=== PATIENT | male | born 1980 | race Caucasian/White ===

== ENCOUNTER → 2022-08-29 | Outpatient (CLI) | payer OTHER, SELFPAY ==
--- NOTE | 2022-08-29 08:00 | RAD_ITS ---
STUDY: AIR CONTRAST ESOPHAGRAM AND UPPER GI SERIES REASON FOR EXAM: Male, 41 years old. R13.10 - Dysphagia, unspecified FLUOROSCOPY TIME (if supplied): (60 seconds) minutes/seconds. 33.55 mGy TECHNIQUE: SINGLE CONTRAST AND AIR CONTRAST FLUOROSCOPIC IMAGES. COMPARISON: None. FINDINGS: The cervical esophagus demonstrates normal motility without aspiration. There is no stricture or extrinsic mass effect. No intraluminal polypoid mass is identified. The thoracic esophagus distends well without stricture or mucosal fold thickening. No mucosal ulcerations are identified. There is no extrinsic mass effect. There are no diverticula. There is evidence of a small sliding hernia with gastroesophageal reflux. The patient ingested a 12 mm tablet of barium. The tablet is trapped at the gastroesophageal junction. The stomach distends well without mucosal fold thickening or mucosal ulceration. There is no intraluminal mass. The duodenal bulb is freely distensible without deformity or ulceration. The duodenal sweep is normal in position and caliber. RAD/Upper GI w/BA Swallow IMPRESSION: Small sliding nail hernia with gastroesophageal reflux. There is trapping of the 12 mm tablet that barium at the gastroesophageal junction. Electronically Signed: Tico Arana MD at 15:20 EDT ,
== END | disposition home or self-care (01) ==
PROVIDERS: PCP Nurse Practitioner Family; Visit Provider Nurse Practitioner Family
DX: R13.10 Dysphagia, unspecified (principal)
CPT/HCPCS: 74246

== ENCOUNTER → 2022-09-17 | Outpatient (CLI) | payer OTHER, SELFPAY ==
--- NOTE | 2022-09-17 15:40 | US_ITS ---
EXAM: US SOFT TISSUES HEAD AND NECK, THYROID CLINICAL INDICATION: dysphagia TECHNIQUE: Greyscale and color doppler imaging was performed of the thyroid gland. This report was created using [employer] report [employer]mitted[employer] technology. COMPARISON: None. FINDINGS: LEFT THYROID LOBE: The left lobe of the thyroid measures 4.8 x 1.6 x 1.4 cm. Homogeneous echotexture with normal vascularity. No thyroid nodules are present. RIGHT THYROID LOBE: The right lobe of the thyroid measures 5.3 x 2 x 1.6 cm. Homogeneous echotexture with normal vascularity. No thyroid nodules are present. ISTHMUS: Thyroid isthmus measures 0.2 cm. No thyroid nodules are present. US/Thyroid IMPRESSION: Normal thyroid. Electronically Signed: Dhruv Porter MD at 7:29 EDT ,
== END | disposition home or self-care (01) ==
LOC: US 15:37
PROVIDERS: PCP Nurse Practitioner Family; Referring Provider Surgery; Visit Provider Surgery
DX: R13.10 Dysphagia, unspecified (principal)
CPT/HCPCS: 76536

== ENCOUNTER → 2022-09-27 | Outpatient (CLI) | payer OTHER, SELFPAY ==
[2022-09-27 12:04] LABS: Absolute Neutrophil Count 3.2 X10^3/uL (2.0-7.7); Basophil# 0.03 X10^3/uL; Basophil% 0.5 % (0-1); Eosinophil# 0.43 X10^3/uL; Eosinophils% 7.9 % (0-5); Hematocrit 49.7 % (40-54); Lymphocyte % 25.6 % (19-41); Mean Corp Hgb Conc 34.2 g/dL (32-36); Mean Corpuscular Hgb 30.2 pg (27.0-32.0); Mean Corpuscular Volume 88.3 fL (80-94); Mean Platelet Vol. 11.4 fl (6.2-12.0); Monocyte# 0.37 X10^3/uL; Monocyte% 6.8 % (0-10); NRBC Flagged by Analyzer 0 % (0-5); Neutrophil # 3.22 X10^3/uL (2.7-7.7); Neutrophil % 58.8 % (47-70); Platelet Count 190 K/mm3 (150-450); RBC Distribution Width CV 13.2 % (11.6-14.6); RBC Distribution Width SD 42.2 fl (35.1-43.9); Red Blood Count 5.63 M/mm3 (4.6-6.2); White Blood Count 5.5 K/mm3 (4.4-11.0)
[2022-09-27 12:30] LABS: ALB/GLOB Ratio 1.3 RATIO (0.9-2.4); AST(SGOT) 24 U/L (15-37); Alanine Aminotransfer ALT/SGPT 49 U/L (16-61); Albumin, Serum 3.9 g/dL (3.2-5.0); Alkaline Phosphatase 80 U/L (45-117); Anion Gap 2 (5-15); BUN 17 mg/dL (7-18); BUN/Creat Ratio 17.2 RATIO (10-20); Calcium,Total 8.9 mg/dL (8.5-10.1); Chloride 108 mmol/L (98-107); Cholesterol 143 mg/dL (200); Creatinine, Serum 0.99 mg/dL (0.70-1.30); EST Glomerular Filtration Rate 89 mL/min (>60); Est Glom Filt Rate - Afr Amer 108 mL/min (>60); Globulin 2.9 g/dL (2.2-4.2); Glucose 92 mg/dL (74-106); High Density Lipoprotein 55 mg/dL; Potassium 3.8 mmol/L (3.5-5.1); Protein, Total 6.8 g/dL (6.4-8.2); Sodium Level 139 mmol/L (136-145); Thyroid Stim Hormone (TSH) 2.75 uIU/mL (0.358-3.74); Triglycerides 87 mg/dL; Very Low Density Lipoprotein 17 mg/dL (5-40)
[2022-10-04 12:09] LABS: Testosterone, % Free 1.21 % (1.50-4.20); Testosterone, Total 595 ng/dL (264-916)
== END | disposition home or self-care (01) ==
LOC: BIMLAB 07:56
PROVIDERS: PCP Nurse Practitioner Family; Referring Provider Nurse Practitioner Family; Visit Provider Nurse Practitioner Family
DX: Z00.00 Encounter for general adult medical examination without abnormal findings (principal); R53.83 Other fatigue
CPT/HCPCS: 36415; 80053; 80061; 84402; 84403; 84443; 85025

== ENCOUNTER 2022-10-03 06:19 | Day surgery (SDC) | payer OTHER, SELFPAY ==
[2022-10-03] VITALS (9 sets, daily range): BP systolic 109–119; BP diastolic 79–97; PULSE 53–69; RESP 16–18; TEMP 36.2–36.3; O2SAT 98–100; BMI 26.9
[2022-10-03] MEDS: Lactated Ringers 1,000 ML 15 ML IV (07:09)
--- NOTE | 2022-10-03 07:30 | EGD_PTH ---
PATIENT: ED CLARKE LOC: EN U#:[id number] AGE/SX: 41/M ROOM: RE10/03/[address]: Dr. Dhruv Cuellar MD : 1980 BED: DIS: 10/03/2022 SPEC #: [id number] RECD: 10/03/22 14:07 STATUS: RAHEEL HUBER #: [id number] ALIX: 10/03/22 07:[address]: Dhruv Cuellar DEPT: SURGICAL PATHOLOGY RECD BY: Liza Corea ENTERED: 10/04/22 08:49 SP TYPE: EGD BIOPSY OTHR DR: MATI OrlandoC Tissues: A - Gastric mucous membrane B - Esophagus, NOS C - Esophagus, NOS Procedures: Special Stain Group II Surgery Specimen Level IV Alcian Blue/PAS (control) HEADER OPERATION: EGD ([facility] [place] biopsy PRE-OP DIAGNOSIS: Dysphagia, hiatal hernia, GERD, umbilical hernia TISSUE SUBMITTED: A ? Antrum biopsy for histo and H. pylori, B ? Z-line biopsy, C ? Distal esophagus biopsy MICROSCOPIC DIAGNOSIS A. Antrum, biopsy: Mild gastritis. See microscopic description and comment. B. Z-line biopsy: A fragment of squamous mucosa with changes consistent with eosinophilic esophagitis. See comment. C. Distal esophagus, biopsy: Fragments of gastroesophageal mucosa with mild chronic inflammation. Intestinal metaplasia (goblet cell metaplasia) not identified. SJ:germania 10/07/2022 COMMENT A. The results of immunohistochemistry for Helicobacter pylori will be reported separately ([id number]). B. Increased number of eosinophils (>20 per high power field) are noted consistent with eosinophilic esophagitis. C. Alcian blue/PAS stain with matched control is used in the evaluation of the specimen. Increased number of eosinophils (~15 per high power field) are noted. MICROSCOPIC DESCRIPTION Slides are reviewed. A. The specimen shows fragments of gastric mucosa with chronic inflammatory cell infiltrates in the lamina propria consisting of lymphocytes and plasma cells, consistent with mild chronic gastritis. GROSS DESCRIPTION A - Received in fixative is one container labeled with the patient's name and designated antrum biopsy. The specimen consists of two irregular fragments of light will soft tissue that in aggregate measure 0.6 x 0.2 x 0.1 cm. The specimen is totally submitted in one cassette. B - Received in fixative is one container labeled with the patient's name and designated Z-line biopsy. The specimen consists of one irregular fragment of light will soft tissue that measures 0.4 x 0.2 x 0.1 cm. The specimen is totally submitted in one cassette. C - Received in fixative is one container labeled with the patient's name and designated distal esophagus biopsy. The specimen consists of two irregular fragments of light will soft tissue that in aggregate measure 0.4 x 0.2 x 0.1 cm. The specimen is totally submitted in one cassette. / SJ:rg 10/04/2022 TC:3 CPT: 52996 x3, 92804
--- NOTE | 2022-10-03 07:30 | IMM_PTH ---
PATIENT: ED CLARKE LOC: EN U#:[id number] AGE/SX: 41/M ROOM: RE10/03/[address]: Dr. Dhruv Cuellar MD : 1980 BED: DIS: 10/03/2022 SPEC #: [id number] RECD: 10/04/22 09:59 STATUS: RAHEEL HUBER #: [id number] ALIX: 10/03/22 07:[address]: Dhruv Cuellar DEPT: IMMUNOHISTOCHEMISTRY RECD BY: Luz Stevenson ENTERED: 10/04/22 10:00 SP TYPE: IMMUNO OTHR DR: Cody Oshea, SIMONE-Tianna Tissues: A - Stomach, NOS Procedures: H Pylori (initial) PHYSICIAN & INSTITUTION [place] [address] SPECIMEN INFORMATION: Tissue Source: A ? Antrum biopsy Clinical Info: Dysphagia, hiatal hernia, GERD, umbilical hernia Specimen Number: [id number] CPT code: 80461 METHODOLOGY: Deparaffinized sections of prefer/formalin-fixed tissue or PAP/DQ stained slides are incubated with monoclonal/polyclonal antibodies/oligonucleotide probes. Localization is made via biotin free immunoperoxidase method. Appropriate controls are performed and reacted as expected. Results on target cell population are indicated in the following table: RESULTS: ANTIBODY / CLONE RESULT Block A H Pylori (polyclonal) negative These tests were developed and their performance characteristics determined by [facility]. They may not have been cleared or approved by the U.S. Food and Drug Administration. The FDA has determined that such clearance or approval is not necessary. The above immunohistochemical/dualISH markers are ordered and reviewed by the Pathologist. INTERPRETATION: A. Antrum, biopsy: Negative for Helicobacter pylori organisms. SJ:germania 10/07/2022
--- NOTE | 2022-10-03 07:32 | PCM.HP.BLA ---
History and Physical Date of Admission: 10/03/22 Date of Service:? 09/12/22 MR#: [id number] Acct: [id number] Name:ED VO Rep #: [id number] : 1980 ? ? Provider: Dr. Dhruv Cuellar MD Age/Sex:? 41/M ? ? Location: [facility] Status: Signed Intake Vital Signs ? 09/12/2308:52 Height 6 ft 1 in Weight: 207 lb BMI 27.3 Intake Visit Reasons:?Dysphagia Chief Complaint: dysphagia Allergies No Known Allergies Allergy (Unverified 08/22/22 14:03) PFSH Medical History? Dysphagia Surgical History? H/O: vasectomy S/P placement of implantable collamer lens (ICL) Family History? Mother Arthritis Social History? Smoking Status:? Never smoker alcohol intake:? current details:? 2-4 drinks per day substance use type:? does not use what type of physical activity do you participate in:? walking and weight training HPI HPI HPI: Patient is a 41-year-old male who presents for dysphagia.? They are referred for surgical consultation from Cody Oshea NP.? Patient states that he has had the symptoms for years (a ballpark's this duration at approximately 5 years.? He notes that there has been no recent symptomatology and that this is true of his experience of this issue, generally.? He reports that the difficulty swallowing comes and goes.? He notes that during a recent vacation to [facility] in July he had issues almost every day, but then can go 3 to 4 weeks without issue.? He does report identifying some trigger foods?being steak (even despite being coverage small), sandwiches/breads, and lips he insist that his problems are not choking but that it just get stuck.? He reports that generally standing and moving around leads to food becoming dislodged.? He reports feeling this lodging high up in his neck.? Mr. Flynn denies any reproduction of his symptoms during his recent upper GI study.? He states he has no history of reflux symptoms and always joked that he had a still stomach.? We are also reports minimal experience of heartburn and reports that he only took a Tums tablet once in his life. ? Regarding other causes of potential swallowing difficulty, patient was asked about any history of endocrine disorders from [employer] speaking.? He notes that his aunt was diagnosed with thyroid disorder and required thyroidectomy.? He also believes his mother may have had some thyroid issues, but is not able to specify further. Previous work-up has included: As above patient completed a air-contrast esophagram and upper GI series on 08/29/2022.? This demonstrated evidence of a small sliding hiatal hernia with gastroesophageal reflux and trapping of the 12 mm barium tablet. ROS General General: No weight change, appetite, fatigue, colon cancer, breast cancer or weakness HEENT HEENT: No difficulty swallowing, eye injury, eye surgery, swollen glands or hoarseness Endo Endocrine: No thyroid disease, diabetes mellitus, thyroid cancer, Hair loss, heat intolerance or cold intolerance Skin Skin: No rash or changing moles Breast Breast: No left breast lump, right breast lump, nipple discharge, breast pain, abnormal mammogram, abnormal US or breast enlargement Musc Musculoskeletal: No back problems, arthritis, rheumatoid arthritis, gout or joint pain Cardio Cardiovascular: No murmur, pacemaker, heart disease, atrial fibrillation, high blood pressure, heart attack, heart stent, palpitations, shortness of breat with exertion or chest pain Psych Psychiatric: No depression, anxiety or hearing voices Resp Respiratory: No shortness of breath, No sleep apnea, No cough, No COPD, No asthma, No emphysema and No wheezing Gastro Gastrointestinal: No abdominal pain, No nausea or vomiting, No diarrhea, No constipation, No blood in stool, No acid reflux, No hemorrhoids, No ulcers, No gallbladder problem and No black,tarry stools Diogo Hematologic: No blood thinners, No blood disorders, No bleeding, No anemia and No blood clots Neuro Neurologic: No system reviewed and no additional complaints, except as documented, No as per HPI, No abnormal gait, No abnormal hearing, No abnormal movements, No abnormal speech, No behavioral changes, No burning sensations, No confusion, No convulsions, No disequilibrium, No dizziness, No localized weakness, No frequent falls, No headache(s), No lack of coordination, No loss of vision, No memory loss, No numbness, No other visual disturbances, No radicular pain, No restless legs, No sensory deficit, No syncope, No tingling, No tremor(s), No weakness and No other Exam Const General: cooperative, comfortable and no acute distress Neck Other: Has some laryngeal asymmetry when asked to swallow, however, I perceive this to be primarily at the level of his thyroid cartilage.? I do not palpate any clear evidence of thyroid nodularity.? Patient has no tenderness with neck exam. GI Other: No scars, nondistended.? Patient has no tenderness with palpation of 4 abdominal quadrants for the epigastrium.? However, at the umbilicus I palpated a chronically fat incarcerated umbilical hernia.? There is some tenderness with palpation of these incarcerated contents. Assessment and Plan Assessment and Plan (1) Dysphagia: ?Status:?Chronic ?Comment: This is a 41-year-old male who presents with a chronic history of episodic dysphagia.? Patient clearly articulates that his difficulty swallowing seems to be a very early problem in the swallowing reflex and repeatedly points to his cervical area as the point of problem.? However, work-up was started for this issue with a upper GI series that showed evidence of a small hiatal hernia and associated esophageal reflux.? Patient actually had trapping of the barium tablet within this hiatal hernia during the procedure.? When asked to recall if this procedure reproduced any of his symptoms, he denied any such reproduction.? With his based on this denial, that I question whether this hiatal hernia and reflux may actually be symptomatic and there may be a true primary cause yet unidentified.? Patient has a slightly abnormal laryngeal appearance and therefore I would like to get a formal thyroid ultrasound to assess for any thyroid nodularity that may be an alternative explanation for this dysphagia. ?Plan: Thyroid ultrasound (2) Hiatal hernia with gastroesophageal reflux: ?Status:?Chronic ?Comment: Patient with recent upper GI series for complaints of dysphagia showing small hiatal hernia and gastroesophageal reflux.? Patient insists that he has no history of reflux symptoms?nor heartburn symptoms.? Still given his complaints of dysphagia, the fact that his barium tablet became trapped within his hiatal hernia, and the possibility of silent reflux, I have recommended that we consider diagnostic EGD to better evaluate patient's anatomy.? Patient is receptive of this recommendation and wishes to proceed as described. ?Plan: EGD under local MAC to assess for size of hiatal hernia and any associated mucosal change (3) Umbilical hernia: ?Status:?Chronic ?Comment: Patient with incidentally discovered umbilical hernia during today's exam.? Appears to be chronically fat?incarcerated.? Patient denies any significant symptoms, but does remark of occasional pains in this area.? Given that there is fat within the defect that does not reduce easily, I believe patient is at minimal risk for bowel involvement, but have cautioned him that these hernias are likely to grow in size and symptom and that ultimately I would recommend he consider a repair.? Patient states he will take this into consideration. Interval: Pt seen and examined. He denies any health changes and reports that he is great. He was updated on the results of his recent thyroid US. All questions were taken from pt and his mother re today's procedure. Plan to proceed to endoscopy suite for procedure as disccussed above.
--- NOTE | 2022-10-03 08:31 | OP.EGD_ITS ---
Patient Name: Bryan Flynn Procedure Date: 10/03/2022 7:58 AM Date of : 1980 Age: 41 Procedure: Upper GI endoscopy Indications: Dysphagia, Gastro-esophageal reflux disease Providers: Dhruv Cuellar MD Referring MD: Cody Oshea NP Medicines: Monitored Anesthesia Care Patient Profile: Refer to note in patient chart for documentation of history and physical. Complications: No immediate complications. Estimated blood loss: Minimal. Procedure: Pre-Anesthesia Assessment: - The heart rate, respiratory rate, oxygen saturations, blood pressure, adequacy of pulmonary ventilation, and response to care were monitored throughout the procedure. After obtaining informed consent, the endoscope was passed under direct vision. Throughout the procedure, the patient's blood pressure, pulse, and oxygen saturations were monitored continuously. The gastroscope was introduced through the mouth, and advanced to the second part of duodenum. The upper GI endoscopy was accomplished without difficulty. The patient tolerated the procedure well. Scope In: 8:05:28 AM Scope Out: 8:22:06 AM Total Procedure Duration Time 0 hours 16 minutes 38 seconds Findings: The duodenal bulb, first portion of the duodenum and second portion of the duodenum were normal. No biopsies or other specimens were collected for this exam. Localized mildly erythematous mucosa without bleeding was found in the gastric antrum. Biopsies were taken with a cold forceps for histology. Estimated blood loss was minimal. A medium-sized hiatal hernia was present. No biopsies or other specimens were collected for this exam. The gastroesophageal flap valve was visualized endoscopically and classified as Hill Grade IV (no fold, wide open lumen, hiatal hernia present). No biopsies or other specimens were collected for this exam. The Z-line was regular and was found 40 cm from the incisors. Biopsies were taken with a cold forceps for histology. The proximal esophagus and mid esophagus were normal. No biopsies or other specimens were collected for this exam. Impression: - Normal duodenal bulb, first portion of the duodenum and second portion of the duodenum. No specimens collected. - Erythematous mucosa in the antrum. Biopsied. - Medium-sized hiatal hernia. No specimens collected. - Gastroesophageal flap valve classified as Hill Grade IV (no fold, wide open lumen, hiatal hernia present). No specimens collected. - Z-line regular, 40 cm from the incisors. Biopsied. - Normal proximal esophagus and mid esophagus. No specimens collected. Recommendation: - Discharge patient to home (via wheelchair). - Resume previous diet today. - Continue present medications. - Await pathology results. - Telephone my office for pathology results in 1 week. Procedure Code(s): --- Professional --- 36714, Esophagogastroduodenoscopy, flexible, transoral; with biopsy, single or multiple Diagnosis Code(s): --- Professional --- K31.89, Other diseases of stomach and duodenum K44.9, Diaphragmatic hernia without obstruction or gangrene R13.10, Dysphagia, unspecified K21.9, Gastro-esophageal reflux disease without esophagitis CPT copyright 2017 [employer]. All rights reserved. The codes documented in this report are preliminary and upon e business manager review may be revised to meet current compliance requirements. Dhruv Cuellar MD 10/03/2022 8:30:45 AM This report has been signed electronically. Number of Addenda: 0 Note Initiated On: 10/03/2022 7:58 AM
--- NOTE | 2022-10-03 08:32 | OP.CCLET_ITS ---
10/03/2022 Cody Oshea NP [address] [place] [address] [place] [address] Re : Upper GI endoscopy procedure for Bryan Flynn Dear Mr. Oshea This procedure was performed on September. My impressions and recommendations are as follows: Impressions : - Normal duodenal bulb, first portion of the duodenum and second portion of the duodenum. No specimens collected. - Erythematous mucosa in the antrum. Biopsied. - Medium-sized hiatal hernia. No specimens collected. - Gastroesophageal flap valve classified as Hill Grade IV (no fold, wide open lumen, hiatal hernia present). No specimens collected. - Z-line regular, 40 cm from the incisors. Biopsied. - Normal proximal esophagus and mid esophagus. No specimens collected. Recommendations : - Discharge patient to home (via wheelchair). - Resume previous diet today. - Continue present medications. - Await pathology results. - Telephone my office for pathology results in 1 week. My findings are described in the full procedure note, which is enclosed. If I can be of further assistance, please feel free to contact me at Doctor phone number(s): , Work: . Sincerely, Dhruv Cuellar MD 10/03/2022 8:30:45 AM This report has been signed electronically.
== END 2022-10-03 09:25 | disposition home or self-care (01) ==
LOC: EN 06:20 → AC 06:20
PROVIDERS: PCP Nurse Practitioner Family; Referring Provider Nurse Practitioner Family; Visit Provider Surgery
PROC: 0DJ08ZZ Inspection of Upper Intestinal Tract, Via Natural or Artificial Opening Endoscopic (ICD-10-PCS; CPT 43235; principal; 2022-10-03 07:25)
DX: K29.70 Gastritis, unspecified, without bleeding (principal); K44.9 Diaphragmatic hernia without obstruction or gangrene; K21.00 Gastro-esophageal reflux disease with esophagitis, without bleeding; K42.9 Umbilical hernia without obstruction or gangrene
CPT/HCPCS: 43239; 88305; 88313; 88342; J2405

== ENCOUNTER 2022-12-19 06:21 | Day surgery (SDC) | payer OTHER, SELFPAY ==
--- NOTE | 2022-12-19 | IMM_PTH ---
PATIENT: ED CLARKE LOC: EN U#:[id number] AGE/SX: 42/M ROOM: RE12/19/[address]: Dr. Dhruv Cuellar MD : 1980 BED: DIS: 12/19/2022 SPEC #: [id number] RECD: 12/20/22 08:07 STATUS: RAHEEL HUBER #: [id number] ALIX: 12/19/22 00:[address]: Dhruv Cuellar DEPT: IMMUNOHISTOCHEMISTRY RECD BY: Sylvia Cano ENTERED: 12/20/22 08:08 SP TYPE: IMMUNO OT DR: Thelma Primary Care Phys Tissues: A - Gastric mucous membrane Procedures: H Pylori (initial) PHYSICIAN & INSTITUTION [place] [address] SPECIMEN INFORMATION: Tissue Source: Antrum Clinical Info: Dysphagia, hiatal hernia, umbilical hernia Specimen Number: [id number] CPT code: 69927 METHODOLOGY: Deparaffinized sections of prefer/formalin-fixed tissue or PAP/DQ stained slides are incubated with monoclonal/polyclonal antibodies/oligonucleotide probes. Localization is made via biotin free immunoperoxidase method. Appropriate controls are performed and reacted as expected. Results on target cell population are indicated in the following table: RESULTS: ANTIBODY / CLONE RESULT H Pylori (polyclonal) negative These tests were developed and their performance characteristics determined by [facility]. They may not have been cleared or approved by the U.S. Food and Drug Administration. The FDA has determined that such clearance or approval is not necessary. The above immunohistochemical/dualISH markers are ordered and reviewed by the Pathologist. INTERPRETATION: A. Antrum, biopsy: Negative for Helicobacter pylori organisms. SJ:reji 12/20/22
--- NOTE | 2022-12-19 | GASB_PTH ---
PATIENT: ED CLARKE LOC: EN U#:[id number] AGE/SX: 42/M ROOM: RE12/19/[address]: Dr. Dhruv Cuellar MD : 1980 BED: DIS: 12/19/2022 SPEC #: [id number] RECD: 12/19/22 13:13 STATUS: RAHEEL HUBER #: [id number] ALIX: 12/19/22 00:[address]: Dhruv Cuellar DEPT: SURGICAL PATHOLOGY RECD BY: Tod Hu ENTERED: 12/19/22 13:13 SP TYPE: Gastric Bx OTHR DR: No Primary Care Phys Tissues: A - Gastric mucous membrane B - Gastric mucous membrane C - Esophageal mucous membrane Procedures: Special Stain Group II Surgery Specimen Level IV Alcian Blue/PAS (control) HEADER OPERATION: EGD PRE-OP DIAGNOSIS: Dysphagia, hiatal hernia with gastroesophageal reflux, umbilical hernia TISSUE SUBMITTED: A. Antrum, B. Hiatal hernia, C. Distal esophagus MICROSCOPIC DIAGNOSIS A. Antrum, biopsy: Mild gastritis. See microscopic description and comment. B. Hiatal hernia, biopsy: Mild gastritis. See microscopic description. C. Distal esophagus, biopsy: Fragments of gastroesophageal mucosa with chronic inflammation. Intestinal metaplasia (goblet cell metaplasia) not identified. SJ: 12/20/2022 COMMENT A. The results of immunohistochemistry for Helicobacter pylori will be reported separately ([id number]). C. Alcian blue/PAS stain with matched control supports the above diagnosis. MICROSCOPIC DESCRIPTION Slides are reviewed. A & B. The specimen shows fragments of gastric mucosa with chronic inflammatory cell infiltrates in the lamina propria consisting of lymphocytes and plasma cells, consistent with mild chronic gastritis. GROSS DESCRIPTION A. Received is one container labeled with the patient name and designated antrum. The specimen consists of multiple irregular fragments of light will soft tissue that in aggregate measure 1.5 x .3 x .1 cm. The specimen is totally submitted in one cassette. B. Received is one container labeled with the patient name and designated hiatal hernia. The specimen consists of two irregular fragments of light will soft tissue that in aggregate measure .6 x .2 x .1 cm. The specimen is totally submitted in one cassette. C. Received is one container labeled with the patient name and designated distal esohagus. The specimen consists of multiple irregular fragments of light will soft tissue that in aggregate measure 1 x .3 x .1 cm. The specimen is totally submitted in one cassette. / SJ:cc 12/20/22 TC:3 CPT:57693 x3, 49814
[2022-12-19 07:01] VITALS: BP 120/79; PULSE 67; RESP 16; TEMP 36.6; O2SAT 98; BMI 27.0
[2022-12-19] MEDS: Lactated Ringers 1,000 ML 15 ML IV (07:04)
--- NOTE | 2022-12-19 07:39 | HP.PCM_ITS ---
History and Physical Date of Admission: 12/19/22 Date of Service: 09/12/22 MR#: [id number] Acct: [id number] Name: ED CLARKE Rep #: [id number] : 1980 Provider: Dr. Dhruv Cuellar MD Age/Sex: 41/M Location: [facility] [address] Status: Signed Intake Vital Signs 09/12/2308:52 Height 6 ft 1 in Weight: 207 lb BMI 27.3 Intake Visit Reasons: Dysphagia Chief Complaint: dysphagia Allergies No Known Allergies Allergy (Unverified 08/22/22 14:03) PFSH Medical History Dysphagia Surgical History H/O: vasectomy S/P placement of implantable collamer lens (ICL) Family History Mother Arthritis Social History Smoking Status: Never smoker alcohol intake: current details: 2-4 drinks per day substance use type: does not use what type of physical activity do you participate in: walking and weight training HPI HPI HPI: Patient is a 41-year-old male who presents for dysphagia. They are referred for surgical consultation from Cody Oshea NP. Patient states that he has had the symptoms for years (a ballpark's this duration at approximately 5 years. He not es that there has been no recent symptomatology and that this is true of his experience of this issue, generally. He reports that the difficulty swallowing comes and goes. He notes that during a recent vacation to [place] in July he had issues almost every day, but then can go 3 to 4 weeks without issue. He does report identifying some trigger foods?being steak (even despite being coverage small), sandwiches/breads, and lips he insist that his problems are not choking but that it just get stuck. He reports that generally standing and moving around leads to food becoming dislodged. He reports feeling this lodging high up in his neck. Mr. Clarke denies any reproduction of his symptoms during his recent upper GI study. He states he has no history of reflux symptoms and always joked that he had a still stomach. We are also reports minimal experience of heartburn and reports that he only took a Tums tablet once in his life. Regarding other causes of potential swallowing difficulty, patient was asked about any history of endocrine disorders from [place] speaking. He notes that his aunt was diagnosed with thyroid disorder and required thyroidectomy. He also believes his mother may have had some thyroid issues, but is not able to specify further. Previous work-up has included: As above patient completed a air-contrast esophagram and upper GI series on 08/29/2022. This demonstrated evidence of a small sliding hiatal hernia with gastroesophageal reflux and trapping of the 12 mm barium tablet. ROS General General: No weight change, appetite, fatigue, colon cancer, breast cancer or weakness HEENT HEENT: No difficulty swallowing, eye injury, eye surgery, swollen glands or hoarseness Endo Endocrine: No thyroid disease, diabetes mellitus, thyroid cancer, Hair loss, heat intolerance or cold intolerance Skin Skin: No rash or changing moles Breast Breast: No left breast lump, right breast lump, nipple discharge, breast pain, abnormal mammogram, abnormal US or breast enlargement Musc Musculoskeletal: No back problems, arthritis, rheumatoid arthritis, gout or joint pain Cardio Cardiovascular: No murmur, pacemaker, heart disease, atrial fibrillation, high blood pressure, heart attack, heart stent, palpitations, shortness of breat with exertion or chest pain Psych Psychiatric: No depression, anxiety or hearing voices Resp Respiratory: No shortness of breath, No sleep apnea, No cough, No COPD, No asthma, No emphysema and No wheezing Gastro Gastrointestinal: No abdominal pain, No nausea or vomiting, No diarrhea, No constipation, No blood in stool, No acid reflux, No hemorrhoids, No ulcers, No gallbladder problem and No black,tarry stools Diogo Hematologic: No blood thinners, No blood disorders, No bleeding, No anemia and No blood clots Neuro Neurologic: No system reviewed and no additional complaints, except as documented, No as per HPI, No abnormal gait, No abnormal hearing, No abnormal movements, No abnormal speech, No behavioral changes, No burning sensations, No confusion, No convulsions, No disequilibrium, No dizziness, No localized weakness, No frequent falls, No headache(s), No lack of coordination, No loss of vision, No memory loss, No numbness, No other visual disturbances, No radicular pain, No restless legs, No sensory deficit, No syncope, No tingling, No tremor(s), No weakness and No other Exam Const General: cooperative, comfortable and no acute distress Neck Other: Has some laryngeal asymmetry when asked to swallow, however, I perceive this to be primarily at the level of his thyroid cartilage. I do not palpate any clear evidence of thyroid nodularity. Patient has no tenderness with neck exam. GI Other: No scars, nondistended. Patient has no tenderness with palpation of 4 abdominal quadrants for the epigastrium. However, at the umbilicus I palpated a chronically fat incarcerated umbilical hernia. There is some tenderness with palpation of these incarcerated contents. Assessment and Plan Assessment and Plan (1) Dysphagia: Status: Chronic Comment: This is a 41-year-old male who presents with a chronic history of episodic dysphagia. Patient clearly articulates that his difficulty swallowing seems to be a very early problem in the swallowing reflex and repeatedly points to his cervical area as the point of problem. However, work-up was started for this issue with a upper GI series that showed evidence of a small hiatal hernia and associated esophageal reflux. Patient actually had trapping of the barium tablet within this hiatal hernia during the procedure. When asked to recall if this procedure reproduced any of his symptoms, he denied any such reproduction. With his based on this denial, that I question whether this hiatal hernia and reflux may actually be symptomatic and there may be a true primary cause yet unidentified. Patient has a slightly abnormal laryngeal appearance and ther efore I would like to get a formal thyroid ultrasound to assess for any thyroid nodularity that may be an alternative explanation for this dysphagia. Plan: Thyroid ultrasound (2) Hiatal hernia with gastroesophageal reflux: Status: Chronic Comment: Patient with recent upper GI series for complaints of dysphagia showing small hiatal hernia and gastroesophageal reflux. Patient insists that he has no history of reflux symptoms?nor heartburn symptoms. Still given his complaints of dysphagia, the fact that his barium tablet became trapped within his hiatal hernia, and the possibility of silent reflux, I have recommended that we consider diagnostic EGD to better evaluate patient's anatomy. Patient is re ceptive of this recommendation and wishes to proceed as described. Plan: EGD under local MAC to assess for size of hiatal hernia and any associated mucosal change (3) Umbilical hernia: Status: Chronic Comment: Patient with incidentally discovered umbilical hernia during today's exam. Appears to be chronically fat?incarcerated. Patient denies any significant symptoms, but does remark of occasional pains in this area. Given that there is fat within the defect that does not reduce easily, I believe patient is at minimal risk for bowel involvement, but have cautioned him that these hernias are likely to grow in size and symptom and that ultimately I would recommend he consider a repair. Patient states he will take this into consideration. Orders: Update: Pt reports improvement of symptoms since his last EGD September. He actually denies any choking episodes. However, he also adds that he has been using a different sleeping position and questions whether or not this may be helping as well. We will plan to proceed with EGD and biopsy to hopefully objectively evaluate his response to treatment for eosinophilic esophagitis.
[2022-12-19 08:10] VITALS: BP 120/79; BP 96/52; PULSE 64; RESP 14; TEMP 36.4; O2SAT 96
--- NOTE | 2022-12-19 08:10 | OP.EGD_ITS ---
Patient Name: Bryan Flynn Procedure Date: 12/19/2022 7:20 AM Date of : 1980 Age: 42 Procedure: Upper GI endoscopy Indications: Eosinophilic esophagitis, Follow-up of eosinophilic esophagitis Providers: Dhruv Cuellar MD Medicines: See the Anesthesia note for documentation of the administered medications Patient Profile: Refer to note in patient chart for documentation of history and physical. Complications: No immediate complications. Estimated blood loss: Minimal. Procedure: Pre-Anesthesia Assessment: - The heart rate, respiratory rate, oxygen saturations, blood pressure, adequacy of pulmonary ventilation, and response to care were monitored throughout the procedure. After obtaining informed consent, the endoscope was passed under direct vision. Throughout the procedure, the patient's blood pressure, pulse, and oxygen saturations were monitored continuously. The gastroscope was introduced through the mouth, and advanced to the second part of duodenum. The upper GI endoscopy was accomplished without difficulty. The patient tolerated the procedure well. Scope In: 7:46:12 AM Scope Out: 8:00:38 AM Total Procedure Duration Time 0 hours 14 minutes 26 seconds Findings: No gross lesions were noted in the duodenal bulb, in the first portion of the duodenum and in the second portion of the duodenum. No biopsies or other specimens were collected for this exam. Localized mild inflammation characterized by erythema was found in the gastric antrum. Biopsies were taken with a cold forceps for histology. Estimated blood loss was minimal. A medium-sized hiatal hernia was present. Biopsies were taken with a cold forceps for histology. Estimated blood loss was minimal. The Z-line was regular and was found 39 cm from the incisors. Biopsies were taken with a cold forceps for histology. The exam was otherwise without abnormality. Impression: - No gross lesions in the duodenal bulb, in the first portion of the duodenum and in the second portion of the duodenum. No specimens collected. - Gastritis. Biopsied. - Medium-sized hiatal hernia. Biopsied. - Z-line regular, 39 cm from the incisors. Biopsied. - The examination was otherwise normal. Recommendation: - Discharge patient to home (via wheelchair). - Resume previous diet today. - Continue present medications. - Await pathology results. - Telephone my office for pathology results in 1 week. Procedure Code(s): --- Professional --- 28644, Esophagogastroduodenoscopy, flexible, transoral; with biopsy, single or multiple Diagnosis Code(s): --- Professional --- K29.70, Gastritis, unspecified, without bleeding K44.9, Diaphragmatic hernia without obstruction or gangrene K20.0, Eosinophilic esophagitis CPT copyright 2017 [employer]. All rights reserved. The codes documented in this report are preliminary and upon clean rice grader and reel tender review may be revised to meet current compliance requirements. Dhruv Cuellar MD 12/19/2022 8:10:00 AM This report has been signed electronically. Number of Addenda: 0 Note Initiated On: 12/19/2022 7:20 AM
--- NOTE | 2022-12-19 08:11 | OP.CCLET_ITS ---
12/19/2022 Cody Oshea, SIMONE [address] [place] [place] [address] [place] [address] Re : Upper GI endoscopy procedure for Bryan Flynn Dear Mr. Oshea This procedure was performed on December. My impressions and recommendations are as follows: Impressions : - No gross lesions in the duodenal bulb, in the first portion of the duodenum and in the second portion of the duodenum. No specimens collected. - Gastritis. Biopsied. - Medium-sized hiatal hernia. Biopsied. - Z-line regular, 39 cm from the incisors. Biopsied. - The examination was otherwise normal. Recommendations : - Discharge patient to home (via wheelchair). - Resume previous diet today. - Continue present medications. - Await pathology results. - Telephone my office for pathology results in 1 week. My findings are described in the full procedure note, which is enclosed. If I can be of further assistance, please feel free to contact me at Doctor phone number(s): , Work: . Sincerely, Dhruv Cuellar MD 12/19/2022 8:10:00 AM This report has been signed electronically.
[2022-12-19 08:15] VITALS: BP 120/79; BP 95/52; PULSE 61; RESP 14; O2SAT 95
[2022-12-19 08:20] VITALS: BP 100/75; BP 120/79; PULSE 57; RESP 14; O2SAT 96
[2022-12-19 08:25] VITALS: BP 100/76; BP 120/79; PULSE 59; RESP 16; TEMP 36.3; O2SAT 95
[2022-12-19 08:36] VITALS: BP 120/79
== END 2022-12-19 08:47 | disposition home or self-care (01) ==
LOC: EN 06:23 → AC 06:23
PROVIDERS: Referring Provider Surgery; Visit Provider Surgery
PROC: 0DJ08ZZ Inspection of Upper Intestinal Tract, Via Natural or Artificial Opening Endoscopic (ICD-10-PCS; CPT 43235; principal; 2022-12-19 07:25)
DX: K21.00 Gastro-esophageal reflux disease with esophagitis, without bleeding (principal); K44.9 Diaphragmatic hernia without obstruction or gangrene; K29.70 Gastritis, unspecified, without bleeding; K42.9 Umbilical hernia without obstruction or gangrene; Z79.899 Other long term (current) drug therapy
CPT/HCPCS: 43239; 88305; 88313; 88342; J7120; J2405

== ENCOUNTER → 2023-10-03 | Outpatient (CLI) | payer OTHER, SELFPAY ==
[2023-10-03 12:35] LABS: Absolute Neutrophil Count 3.2 X10^3/uL (2.0-7.7); Basophil# 0.02 X10^3/uL; Basophil% 0.4 % (0-1); Eosinophil# 0.32 X10^3/uL; Eosinophils% 5.8 % (0-5); Hematocrit 49.3 % (40-54); Hemoglobin 16.7 g/dL (13.0-16.5); Lymphocyte % 27.1 % (19-41); Mean Corp Hgb Conc 33.9 g/dL (32-36); Mean Corpuscular Hgb 29.8 pg (27.0-32.0); Mean Platelet Vol. 11.4 fl (6.2-12.0); Monocyte# 0.51 X10^3/uL; Monocyte% 9.2 % (0-10); NRBC Flagged by Analyzer 0 % (0-5); Neutrophil # 3.17 X10^3/uL (2.7-7.7); Neutrophil % 57.1 % (47-70); Platelet Count 202 K/mm3 (150-450); RBC Distribution Width CV 13.2 % (11.6-14.6); RBC Distribution Width SD 42.5 fl (35.1-43.9); White Blood Count 5.5 K/mm3 (4.4-11.0)
[2023-10-03 13:46] LABS: ALB/GLOB Ratio 1.5 RATIO (0.9-2.4); AST(SGOT) 48 U/L (15-37); Alanine Aminotransfer ALT/SGPT 63 U/L (16-61); Albumin, Serum 3.9 g/dL (3.2-5.0); Alkaline Phosphatase 94 U/L (45-117); Anion Gap 2 (5-15); BUN 21 mg/dL (7-18); BUN/Creat Ratio 23.5 RATIO (10-20); Chloride 109 mmol/L (98-107); Cholesterol 126 mg/dL (200); Creatinine, Serum 0.89 mg/dL (0.70-1.30); EST Glomerular Filtration Rate 100 mL/min (>60); Est Glom Filt Rate - Afr Amer 121 mL/min (>60); Globulin 2.6 g/dL (2.2-4.2); Glucose 60 mg/dL (74-106); High Density Lipoprotein 50 mg/dL; Potassium 4.6 mmol/L (3.5-5.1); Protein, Total 6.5 g/dL (6.4-8.2); Sodium Level 140 mmol/L (136-145); Triglycerides 81 mg/dL; Very Low Density Lipoprotein 16 mg/dL (5-40)
== END | disposition home or self-care (01) ==
LOC: BIMLAB 08:24
PROVIDERS: PCP Internal Medicine; Visit Provider Internal Medicine
DX: Z00.00 Encounter for general adult medical examination without abnormal findings (principal)
CPT/HCPCS: 36415; 80053; 80061; 85025

== ENCOUNTER → 2023-12-17 | Outpatient (CLI) | payer OTHER, SELFPAY ==
[2023-12-17 12:28] LABS: Bacteria 0 SEEN /hpf (None Seen); Mucous, Urine 0 SEEN /hpf (<or=2+); Red Blood Cells-Urine 0 SEEN /hpf (0-5); Squamous Epithelial Cells - UA 0 SEEN /hpf (0-5); White Blood Cells 0 SEEN /hpf (0-5)
[2023-12-17 15:28] LABS: Color, Urine Yellow (Yellow); Glucose, Dipstick Normal (Normal); Ketone-Dipstick Negative (Negative); Leukocyte Esterase-Dipstick Negative /ul (Negative); Nitrite-Dipstick Negative (Negative); Occult Blood-Urine Negative /ul (Negative); Protein-Dipstick Negative (Negative); Urine Bilirubin Dipstick Negative (Negative); Urine Clarity Clear (Clear); Urine Urobilinogen Normal (Normal)
[2023-12-17 15:42] LABS: ALB/GLOB Ratio 1.2 RATIO (0.9-2.4); AST(SGOT) 20 U/L (15-37); Alanine Aminotransfer ALT/SGPT 39 U/L (16-61); Albumin, Serum 3.8 g/dL (3.2-5.0); Alkaline Phosphatase 91 U/L (45-117); Anion Gap 5 (5-15); BUN 15 mg/dL (7-18); BUN/Creat Ratio 15.1 RATIO (10-20); CRP 5.36 mg/L (0.0-3.0); Chloride 105 mmol/L (98-107); EST Glomerular Filtration Rate 88 mL/min (>60); Est Glom Filt Rate - Afr Amer 107 mL/min (>60); Globulin 3.3 g/dL (2.2-4.2); Glucose 95 mg/dL (74-106); Potassium 4.1 mmol/L (3.5-5.1); Protein, Total 7.1 g/dL (6.4-8.2); Sodium Level 139 mmol/L (136-145); Thyroid Stim Hormone (TSH) 2.24 uIU/mL (0.358-3.74)
[2023-12-17 15:58] LABS: Absolute Lymphocyte Count 1.98 X10^3/uL (0.83-4.51); Absolute Neutrophil Count 5.5 X10^3/uL (2.0-7.7); Basophil# 0.04 X10^3/uL; Basophil% 0.5 % (0-1); Eosinophils% 1.2 % (0-5); Erythrocyte Sedimentation Rate < 1 mm/hr (0-20); Hematocrit 44.1 % (40-54); Hemoglobin 15.4 g/dL (13.0-16.5); Lymphocyte # 1.98 X10^3/ul (0.83-4.51); Lymphocyte % 24.1 % (19-41); Mean Corp Hgb Conc 34.9 g/dL (32-36); Mean Corpuscular Hgb 29.3 pg (27.0-32.0); Mean Corpuscular Volume 83.8 fL (80-94); Mean Platelet Vol. 10.2 fl (6.2-12.0); Monocyte# 0.59 X10^3/uL; Monocyte% 7.2 % (0-10); NRBC Flagged by Analyzer 0 % (0-5); Neutrophil # 5.46 X10^3/uL (2.7-7.7); Neutrophil % 66.4 % (47-70); Platelet Count 307 K/mm3 (150-450); RBC Distribution Width CV 13.3 % (11.6-14.6); RBC Distribution Width SD 39.8 fl (35.1-43.9); Red Blood Count 5.26 M/mm3 (4.6-6.2); White Blood Count 8.2 K/mm3 (4.4-11.0)
--- NOTE | 2023-12-17 16:19 | RAD_ITS ---
INDICATION: fever EXAMINATION/TECHNIQUE: X-RAY - XR Chest 2 Views COMPARISON: No previous relevant examinations available for comparison.. FINDINGS: LIFE-SUPPORT AND LINES: 1. None HEART AND VESSELS: The cardiac silhouette, pulmonary vasculature have normal appearance. No evidence of congestive failure. LUNGS AND PLEURAL SPACES: Lungs are clear. No focal infiltrate, consolidation or effusions. No evidence of pneumothorax. No pulmonary mass is noted. MEDIASTINUM AND HILAR REGIONS: No masses adenopathy noted. No areas of calcification. Visualized upper airway is normal in position. BONY ELEMENTS: No acute bony changes noted. RAD/Chest PA and Lateral IMPRESSION: 1. No evidence of acute cardiopulmonary process Electronically Signed: Jb Balbuena MD at 17:08 EDT ,
[2023-12-19 14:10] LABS: ANTINUCLEAR ANTIBODIES DIRECT Negative (Negative)
== END | disposition home or self-care (01) ==
PROVIDERS: PCP Internal Medicine; Referring Provider Physician Assistant; Visit Provider Physician Assistant
DX: R50.9 Fever, unspecified (principal)
CPT/HCPCS: 36415; 71046; 80053; 81001; 84443; 85025; 85652; 86038; 86140; 86225; 86235

== ENCOUNTER → 2024-10-04 | Outpatient (CLI) | payer OTHER, SELFPAY ==
[2024-10-04 13:34] LABS: Absolute Lymphocyte Count 1.67 X10^3/uL (0.83-4.51); Absolute Neutrophil Count 2.5 X10^3/uL (2.0-7.7); Basophil# 0.02 X10^3/uL; Basophil% 0.4 % (0-1); Eosinophil# 0.15 X10^3/uL; Eosinophils% 3.2 % (0-5); Hematocrit 47.2 % (40-54); Hemoglobin 16.3 g/dL (13.0-16.5); Lymphocyte # 1.67 X10^3/ul (0.83-4.51); Lymphocyte % 35.3 % (19-41); Mean Corp Hgb Conc 34.5 g/dL (32-36); Mean Corpuscular Hgb 30.2 pg (27.0-32.0); Mean Corpuscular Volume 87.4 fL (80-94); Mean Platelet Vol. 11.5 fl (6.2-12.0); Monocyte# 0.35 X10^3/uL; Monocyte% 7.4 % (0-10); NRBC Flagged by Analyzer 0 % (0-5); Neutrophil # 2.53 X10^3/uL (2.7-7.7); Neutrophil % 53.5 % (47-70); Platelet Count 190 K/mm3 (150-450); RBC Distribution Width CV 13.1 % (11.6-14.6); RBC Distribution Width SD 41.6 fl (35.1-43.9); White Blood Count 4.7 K/mm3 (4.4-11.0)
[2024-10-04 15:00] LABS: ALB/GLOB Ratio 2.2 RATIO (0.9-2.4); AST(SGOT) 27 U/L (<=37); Alanine Aminotransfer ALT/SGPT 39 U/L (<=46); Albumin, Serum 4.3 g/dL (3.5-5.0); Alkaline Phosphatase 92 U/L (40-129); Anion Gap 11 (5-15); BUN 12 mg/dL (4-19); BUN/Creat Ratio 12.2 RATIO (10-20); Calcium,Total 9.3 mg/dL (7.6-11.0); Carbon Dioxide 25.4 mmol/L (21.0-32.0); Chloride 104 mmol/L (98-108); Creatinine, Serum 0.98 mg/dL (0.70-1.20); EST Glomerular Filtration Rate 100 (>60); Glucose 98 mg/dL (70-99); Potassium 4.3 mmol/L (3.3-5.1); Protein, Total 6.3 g/dL (5.9-8.4); Sodium Level 140 mmol/L (133-145); Vitamin B12 714 pg/mL (180-914); Vitamin D,25 Hydroxy 21.2 ng/mL (30-100)
== END | disposition home or self-care (01) ==
LOC: BIMLAB 09:00
PROVIDERS: PCP Internal Medicine; Visit Provider Internal Medicine
DX: F41.9 Anxiety disorder, unspecified (principal); F32.A Depression, unspecified
CPT/HCPCS: 36415; 80053; 82306; 82607; 84402; 84403; 84439; 84443; 85025